=== PATIENT | male | born 1980 | race Hispanic/Latino ===

== ENCOUNTER 2017-03-04 22:29 | Emergency (ER) | payer BC ==
[~2017-03-04] VITALS: Ht 177.8 cm; Wt 60.2 kg
[~2017-03-04 22:29] MED LIST: NAPROXEN500 MG PO
[2017-03-05 00:23] LABS: HEMATOCRIT 40.7 % (38.0-50.0); MCH 29.2 PG (29.0-34.0); MCHC 32.7 G/DL (30.0-36.0); MCV 89.3 FL (86-99); MEAN PLAT.VOLUME 11.5 uM^3 (9.0-12.4); PLATELET COUNT 176 K/uL (156-360); RBC DIS.WIDTH-CV 12.4 % (11.8-14.6); RBC DIS.WIDTH-SD 41.1 % (39-53); RED BLOOD COUNT 4.56 M/uL (4.00-5.50); WHITE BLOOD COUNT 7.2 K/uL (4.1-10.2)
[2017-03-05 00:40] LABS: CHLORIDE 110 mEq/L (99-109); POTASSIUM 3.8 mEq/L (3.7-5.4); SODIUM 140 mEq/L (136-147)
[2017-03-05 00:43] LABS: GLUCOSE 94 mg/dL (70-99)
[2017-03-05 00:44] LABS: ANION GAP 5 MEQ/L (2-14)
[2017-03-05 00:45] LABS: TOTAL BILIRUBIN 0.5 mg/dL (0.0-1.0)
[2017-03-05 00:46] LABS: ALKALINE PHOSPHATASE 60 IU/L (3-129); GFR ESTIMATE (CALCULATED) > 59 mL/min/; TROP-I INTERPRETATION NEGATIVE; TROPONIN-I < 0.01 ng/mL (0.0-0.30)
[2017-03-05 00:47] LABS: UREA NITROGEN (BUN) 11 mg/dL (9-23)
[2017-03-05 02:40] VITALS: BP 108/67
== END 2017-03-05 02:40 | disposition home or self-care (01) ==
LOC: EME 22:29
PROVIDERS: Physician Assistant
DX: R42 Dizziness and giddiness (principal); E86.0 Dehydration; R00.2 Palpitations; R07.89 Other chest pain; R06.02 Shortness of breath; R00.0 Tachycardia, unspecified; Z83.49 Family history of other endocrine, nutritional and metabolic diseases
CPT/HCPCS: 71020; 80053; 81003; 84443; 84484; 85027; 93005; 99281; 99285; J7030